=== PATIENT | female | born 1990 | race Caucasian/White ===

== ENCOUNTER 2020-08-02 00:06 | Emergency (ER) | payer OTHER ==
[2020-08-02 00:51] LABS: BASOPHILS % (AUTO) 0.4 %; EOSINOPHILS # (AUTO) 0.1 10^3/uL (0.0-0.7); EOSINOPHILS % (AUTO) 1.9 %; HGB - HEMOGLOBIN 15.3 g/dL (12.0-16.0); LYMPHOCYTES # (AUTO) 1.4 10^3/uL (1.5-3.5); LYMPHOCYTES % (AUTO) 25.2 %; MEAN CORPUSCULAR HEMOGLOBIN 29.3 pg (27.0-31.0); MEAN CORPUSCULAR HGB CONC 35.2 g/dL (32.0-36.0); MEAN CORPUSCULAR VOLUME 83.3 fL (81.0-99.0); MEAN PLATELET VOLUME 9.6 fL (7.9-10.8); MONOCYTES # (AUTO) 0.4 10^3/uL (0.0-1.0); MONOCYTES % (AUTO) 7.5 %; NEUTROPHILS # (AUTO) 3.5 10^3/uL (1.5-6.6); NEUTROPHILS % (AUTO) 64.8 %; PLT - PLATELET COUNT 218 10^3/uL (130-450); RED BLOOD COUNT 5.22 10^6/uL (4.20-5.40); RED CELL DISTRIBUTION WIDTH 12.9 % (12.0-15.0); WHITE BLOOD COUNT 5.4 x10^3/uL (4.8-10.8)
[2020-08-02 00:57] LABS: BILIRUBIN,URINE NEGATIVE (NEGATIVE); GLUCOSE, URINE (UA) NEGATIVE (NEGATIVE); KETONES,URINE (UA) NEGATIVE (NEGATIVE); LEUKOCYTE ESTERASE, URINE NEGATIVE (NEGATIVE); NITRITE,URINE NEGATIVE (NEGATIVE); OCCULT BLOOD,URINE TRACE-INTA (NEGATIVE); PROTEIN,URINE 30 mg/dL (NEGATIVE); UROBILINOGEN,URINE 0.2 (NORMAL) E.U./dL (NORMAL)
[2020-08-02 01:00] LABS: ALBUMIN 4.2 g/dL (3.2-5.5); BILIRUBIN,TOTAL 0.5 mg/dL (0.2-1.0); CALCIUM 8.9 mg/dL (8.5-10.3); CREATININE 0.5 mg/dL (0.4-1.0); TOTAL PROTEIN 8.3 g/dL (6.7-8.2)
[2020-08-02 01:00] LABS: CLARITY,URINE CLEAR (CLEAR); HCG UR QUAL POSITIVE
[2020-08-02 01:05] LABS: BACTERIA,URINE Rare /HPF (None Seen); MUCUS,URINE Few Strands; RBC,URINE 0-5 /HPF (0-5); SQUAMOUS EPITHELIAL CELL,UR FEW Squamous (<= Few)
[2020-08-02] MEDS ORDERED: SODIUM CHLORIDE 0.9% 1,000 ML IV STA (02:45)
[2020-08-02] MEDS ORDERED: ONDANSETRON 4 MG/2 ML VIAL IVP STA (02:45)
--- NOTE | 2020-08-02 02:47 | ED Physician Documentation ---
PD HPI ABD PAIN - Stated complaint Stated Complaint: C+, VOMITING - Chief complaint Chief Complaint: Abd Pain - History obtained from History obtained from: Patient, Family - History of Present Illness Timing - onset: How many weeks ago (1) Timing - duration: Weeks (1) Timing - details: Gradual onset, Still present Quality: Sharp, Pain Location: Periumbilical Improved by: Vomiting Worsened by: Position, Palpation Associated symptoms: Nausea, Vomiting. No: Fever Similar symptoms before: Has not had sx before Recently seen: Other - Additional information Additional information: 29-year-old female who believes she may be 10 weeks has Covid and she has been sick for almost 2 weeks. She has developed nausea and vomiting and abdominal pain that is more pronounced than what she has had previously with her pregnancies. She has coughing paroxysms and when she has these paroxysms she has pain in the lower abdomen and pelvis along the inguinal crease. She has not been in to see her doctor as yet for the itself. Review of Systems Constitutional: reports: Myalgias, Fatigue, Sweats. denies: Fever Eyes: denies: Decreased vision Ears: denies: Ear pain Nose: denies: Congestion Throat: denies: Sore throat Cardiac: denies: Chest pain / pressure, Palpitations, Pedal edema Respiratory: reports: Dyspnea, Cough GI: reports: Abdominal Pain, Nausea, Vomiting : denies: Dysuria, Frequency PD PAST MEDICAL HISTORY - Present Medications Home Medications: Ambulatory Orders Medication Instructions Recorded Confirmed Ondansetron Odt [Zofran] 4 mg TL Q6H PRN #10 tablet 08/02/20 - Allergies Allergies/Adverse Reactions: Allergies Allergy/AdvReac Type Severity Reaction Status Date / Time No Known Drug Allergies Allergy Verified 08/02/20 00:26 - Social History Does the pt smoke?: No Smoking Status: Never smoker PD ED PE NORMAL - Vitals Vital signs reviewed: Yes (tachy and hypertensive) - General General: Alert and oriented X 3, No acute distress, Well developed/nourished - HEENT HEENT: Atraumatic, PERRL, EOMI - Respiratory Respiratory: No respiratory distress - Abdomen Abdomen: Normal bowel sounds, Soft, Non distended, No organomegaly, Other (mild tenderness without garding ) - Derm Derm: Normal color, Warm and dry, No rash - Extremities Extremities: No deformity, No edema - Neuro Neuro: Alert and oriented X 3, 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, No motor deficit, No sensory deficit, Normal speech Eye Opening: Spontaneous Motor: Obeys Commands Verbal: Oriented GCS Score: 15 - Psych Psych: Normal mood, Normal affect Results - Vitals Vitals: Vital Signs - 24 hr 08/02/20 08/02/20 08/02/20 00:22 00:45 02:26 Temperature 36.8 C 36.8 C Heart Rate 108 H 108 H 118 H Respiratory 18 18 Rate Blood Pressure 134/99 H 134/99 H 132/79 H O2 Saturation 97 97 99 08/02/20 04:01 Temperature Heart Rate 95 Respiratory Rate Blood Pressure 115/76 O2 Saturation 97 Oxygen O2 Source Room air - Labs Labs: Laboratory Tests 08/02/20 08/02/20 08/02/20 00:30 00:40 00:40 WBC 5.4 RBC 5.22 Hgb 15.3 Hct 43.5 MCV 83.3 MCH 29.3 MCHC 35.2 RDW 12.9 Plt Count 218 MPV 9.6 Neut # (Auto) 3.5 Lymph # (Auto) 1.4 L Creek # (Auto) 0.4 Eos # (Auto) 0.1 Baso # (Auto) 0.0 Absolute Nucleated RBC 0.00 Nucleated RBC % 0.0 Sodium 135 Potassium 3.1 L Chloride 98 L Carbon Dioxide 25 Anion Gap 12.0 BUN 6 Creatinine 0.5 Estimated GFR (MDRD) 144 Glucose 129 H Calcium 8.9 Total Bilirubin 0.5 AST 65 H ALT 96 H Alkaline Phosphatase 99 Total Protein 8.3 H Albumin 4.2 Globulin 4.1 Albumin/Globulin Ratio 1.0 Lipase 22 HCG, Quant Urine Color YELLOW Urine Clarity CLEAR Urine pH 6.0 Ur Specific Ashley >=1.030 H Urine Protein 30 H Urine Glucose (UA) NEGATIVE Urine Ketones NEGATIVE Urine Occult Blood TRACE-INTA Urine Nitrite NEGATIVE Urine Bilirubin NEGATIVE Urine Urobilinogen 0.2 (NORMAL) Ur Leukocyte Esterase NEGATIVE Urine RBC 0-5 Urine WBC 0-3 Ur Squamous Epith Cells FEW Squamous Urine Bacteria Rare Urine Mucus Few Strands Ur Microscopic Review INDICATED Urine Culture Comments NOT INDICATED Urine HCG, Qual POSITIVE 08/02/20 00:40 WBC RBC Hgb Hct MCV MCH MCHC RDW Plt Count MPV Neut # (Auto) Lymph # (Auto) Creek # (Auto) Eos # (Auto) Baso # (Auto) Absolute Nucleated RBC Nucleated RBC % Sodium Potassium Chloride Carbon Dioxide Anion Gap BUN Creatinine Estimated GFR (MDRD) Glucose Calcium Total Bilirubin AST ALT Alkaline Phosphatase Total Protein Albumin Globulin Albumin/Globulin Ratio Lipase HCG, Quant 023779.00 Urine Color Urine Clarity Urine pH Ur Specific Ashley Urine Protein Urine Glucose (UA) Urine Ketones Urine Occult Blood Urine Nitrite Urine Bilirubin Urine Urobilinogen Ur Leukocyte Esterase Urine RBC Urine WBC Ur Squamous Epith Cells Urine Bacteria Urine Mucus Ur Microscopic Review Urine Culture Comments Urine HCG, Qual PD MEDICAL DECISION MAKING - ED course Complexity details: reviewed results, re-evaluated patient, considered differential, d/w patient, d/w family ED course: 29-year-old 4 para 3 in the early stages of has not had an ultrasound with this is that she is experiencing abdominal pain all well as well as nausea and vomiting. She has had significant vomiting more than her previous pregnancies and she is found to be dehydrated. She is administered saline and has improvement. I suspect her abdominal pain is related to her coughing paroxysms and she feels this way as well. We were able to obtain ultrasound demonstrating a 9-week 1 day fetus with activity and a heart rate of 180. The patient feels much better after hydration and she is administered potassium for potassium of 3.1. We will send her home with some Zofran. Departure - Departure Disposition: 01 Home, Self Care Clinical Impression: Early stage of , Dehydration Abdominal pain Qualifiers: Abdominal location: generalized Qualified Code(s): R10.84 - Generalized abdominal pain Vomiting Qualifiers: Vomiting type: unspecified Vomiting Intractability: non-intractable Nausea presence: with nausea Qualified Code(s): R11.2 - Nausea with vomiting, unspecified Condition: Stable Instructions: ED Dehydration, ED Preg Morning Sickness, ED Strain Abdominal Muscle Follow-Up: SUMMER JOHNSON ARNP [Primary Care Provider] - Prescriptions: Ondansetron Odt [Zofran] 4 mg TL Q6H PRN #10 tablet PRN Reason: Nausea / Vomiting Discharge Date/Time: 08/02/20 04:45
[2020-08-02 04:02] VITALS: BP 115/76
[2020-08-02] MEDS ORDERED: POTASSIUM CHLORIDE 20 MEQ TABLET PO STA (04:14)
--- NOTE | 2020-08-02 13:25 | Ultrasound Report ---
PROCEDURE: OB First Trimester INDICATIONS: early abdominal pain OUTSIDE/PRIOR DATING DATA: Last menstrual period (LMP): On. LMP-based estimated date of delivery (ANGELES): Unknown. First dating scan (date and location): 08/02/2020. Estimated date of delivery (ANGELES) from first dating scan: 03/06/2021. TECHNIQUE: Real-time scanning was performed of the fetus and maternal pelvic organs, with image documentation. COMPARISON: None FINDINGS: Embryo: [place]-rump length is identified measuring 2.44 cm corresponding to 9 weeks 1 day. Heart rate measures 187 bpm. Placenta is noted to be anterior. No subchorionic hemorrhage. Measurement variability in dating: +/- 4 weeks by LMP, +/- 7 days by mean sac diameter (use before 6 weeks gestation if crown-rump length not able to be measured), +/- 5 days by crown-rump length (6-12 weeks gestation). Maternal organs: Ovaries demonstrate what appears to be a left corpus luteal cyst. Nabothian cysts a re noted.. Limited images through the kidneys demonstrate no hydronephrosis. IMPRESSION: Single live intrauterine with ultrasound gestational age of 9 weeks 1 day coarse 9 to ultra sound ANGELES of 03/06/2020. Recommend follow-up imaging at 20-22 weeks for dates and anatomy. The above findings are concordant with preliminary report. Reviewed by: Chen Moreno MD on 08/02/2020 1:24 PM PST Approved by: Chne Moreno MD on 08/02/2020 1:24 PM PST Station ID: [id number]
--- NOTE | 2020-08-02 13:26 | Ultrasound Report ---
PROCEDURE: OB Transvaginal INDICATIONS: early abdominal pain OUTSIDE/PRIOR DATING DATA: Last menstrual period (LMP): On. LMP-based estimated date of delivery (ANGELES): Unknown. First dating scan (date and location): 08/02/2020. Estimated date of delivery (ANGELES) from first dating scan: 03/06/2021. TECHNIQUE: Real-time scanning was performed of the fetus and maternal pelvic organs, with image documentation. COMPARISON: None FINDINGS: Embryo: [place]-rump length is identified measuring 2.44 cm corresponding to 9 weeks 1 day. Heart rate measures 187 bpm. Placenta is noted to be anterior. No subchorionic hemorrhage. Measurement variability in dating: +/- 4 weeks by LMP, +/- 7 days by mean sac diameter (use before 6 weeks gestation if crown-rump length not able to be measured), +/- 5 days by crown-rump length (6-12 weeks gestation). Maternal organs: Ovaries demonstrate what appears to be a left corpus luteal cyst. Nabothian cysts a re noted.. Limited images through the kidneys demonstrate no hydronephrosis. IMPRESSION: Single live intrauterine with ultrasound gestational age of 9 weeks 1 day corresponding to ultrasound ANGELES of 03/06/2020. Recommend follow-up imaging at 20-22 weeks for dates and anatomy. The above findings are concordant with preliminary report. Reviewed by: Chen Moreno MD on 08/02/2020 1:24 PM PST Approved by: Chen Moreno MD on 08/02/2020 1:24 PM PST Station ID: [id number]
== END 2020-08-02 04:45 | disposition home or self-care (01) ==
LOC: ED 00:06
DX: O99.281 Endocrine, nutritional and metabolic diseases complicating pregnancy, first trimester (principal); E86.0 Dehydration; O21.9 Vomiting of pregnancy, unspecified; Z3A.09 9 weeks gestation of pregnancy
CPT/HCPCS: 36415; 76801; 76817; 80053; 81001; 81025; 83690; 84702; 85025; 96361; 96374; 99284; A9270; 81003; 87086